=== PATIENT | male | born 1980 | race Caucasian/White ===

== ENCOUNTER → 2016-12-17 | Outpatient (CLI) | payer OTHER | LOC: US 07:35 | DX: R94.5 Abnormal results of liver function studies (principal); K76.0 Fatty (change of) liver, not elsewhere classified | CPT/HCPCS: 76705 ==

== ENCOUNTER 2020-12-20 21:04 | Emergency (ER) | payer SELFPAY ==
[~2020-12-20 21:04] MED LIST: AZITHROMYCIN500 MG PO; ZOFRAN4 MG PO
[2020-12-20 21:59] LABS: HEMOGLOBIN 16.8 gm/dl (14.0-17.5); RED BLOOD COUNT 5.65 M/UL (4.20-5.50); WHITE BLOOD COUNT 5.3 K/UL (4.5-11.0)
[2020-12-20 22:16] LABS: BUN/CREATININE RATIO 18 (0-10)
[2020-12-21] MEDS ORDERED: GLUCOPHAGE500 MG PO (00:01)
== END 2020-12-21 00:46 | disposition home or self-care (01) ==
LOC: ER1 21:04
PROVIDERS: Internal Medicine
DX: R07.9 Chest pain, unspecified (principal); Z88.0 Allergy status to penicillin; F41.9 Anxiety disorder, unspecified; F17.290 Nicotine dependence, other tobacco product, uncomplicated; R73.03 Prediabetes
CPT/HCPCS: 71045; 80053; 82550; 82553; 83874; 84484; 85025; 93005; 99285

== ENCOUNTER 2021-05-16 13:32 | Emergency (ER) | payer SELFPAY ==
[~2021-05-16 13:32] MED LIST changes: +GLUCOPHAGE500 MG PO
[2021-05-16 14:25] LABS: HEMOGLOBIN 18.3 gm/dl (14.0-17.5); WHITE BLOOD COUNT 5.6 K/UL (4.5-11.0)
[2021-05-16 16:06] LABS: BUN/CREATININE RATIO 11 (0-10)
[2021-05-16] MEDS ORDERED: PROTONIX40 MG PO (18:14)
== END 2021-05-16 18:30 | disposition home or self-care (01) ==
LOC: ER1 13:32
PROVIDERS: Emergency Medicine
DX: R07.9 Chest pain, unspecified (principal); E11.9 Type 2 diabetes mellitus without complications; Z20.822 Contact with and (suspected) exposure to COVID-19
CPT/HCPCS: 71045; 80053; 82550; 82553; 83690; 83735; 83874; 83880; 84484; 85025; 93005; 96365; 99285; U0002